=== PATIENT | male | born 1965 | race Two or more races ===

== ENCOUNTER 2024-03-08 05:02 | Emergency (ER) | payer MEDICAID ==
[~2024-03-08] VITALS: Ht 170.2 cm; Wt 72.7 kg
[2024-03-08] MEDS: HYDROcodone-ACET 5/325MG TAB PO ONE (07:20)
[2024-03-08] MEDS: KETOROLAC TROMETH 30 MG/ML 1ML VIAL IM ONE (07:21)
[2024-03-08 07:26] VITALS: PULSE 85; RESP 20; O2SAT 96
[2024-03-08 07:27] VITALS: BP 140/72; PULSE 85; RESP 20; TEMP 98.2; O2SAT 98
[2024-03-08] MEDS ORDERED: NABU-72 PO (08:01)
[2024-03-08] MEDS ORDERED: CYCL-839 PO (08:01)
== END 2024-03-08 08:54 | disposition home or self-care (01) ==
LOC: ER 05:02
DX: M54.2 Cervicalgia (principal); R51.9 Headache, unspecified
CPT/HCPCS: 70450; 72125; 96372; 99285; J1885